=== PATIENT | female | born 1995 | race Caucasian/White ===

== ENCOUNTER 2020-11-10 22:27 | Emergency (ER) | payer OTHER ==
[~2020-11-10] VITALS: Ht 165.1 cm; Wt 61.2 kg
--- NOTE | 2020-11-10 22:41 | NUR ---
MSE COMPLETED, PT D/C'D HOME ACI/RX X1 GIVEN, PT AMBULATED W/O DIFF/TOOK ALL BELONGINGS.
[2020-11-10 22:42] VITALS: BP 102/97
== END 2020-11-10 22:43 | disposition home or self-care (01) ==
LOC: ER 22:27
DX: Z76.0 Encounter for issue of repeat prescription (principal); R10.2 Pelvic and perineal pain
CPT/HCPCS: A4663

== ENCOUNTER 2021-07-29 01:51 | Emergency (ER) | payer OTHER ==
[~2021-07-29] VITALS: Ht 167.6 cm; Wt 63.5 kg
--- NOTE | 2021-07-29 02:06 | NUR ---
ERMD into eval patient.
[2021-07-29] MEDS ORDERED: LIDOCAINE HCL 1% 20 ML VIAL TP ONE (02:15)
[2021-07-29] MEDS ORDERED: SULF1TAB48 PO (02:28)
[2021-07-29] MEDS ORDERED: DOXY100T2 PO (02:28)
[2021-07-29] MEDS ORDERED: IBUP-1955 PO (02:28)
[2021-07-29 02:29] LABS: *URINE HCG, QUAL NEGATIVE (NEGATIVE)
[2021-07-29] MEDS ORDERED: SULFAMETH/TRIMETH 800/160 MG TABLET PO ONE (02:30)
[2021-07-29] MEDS ORDERED: DOXYCYCLINE HYCLATE 100 MG TABLET PO ONE (02:30)
[2021-07-29] MEDS ORDERED: BACITRACIN ZINC OINT 15 GM TUBE TOP ONE (02:30)
[2021-07-29] MEDS ORDERED: IBUPROFEN 600 MG TABLET PO ONE (02:30)
[2021-07-29] MEDS ORDERED: BACITRACIN ZINC OINT 15 GM TUBE ONE (02:33)
--- NOTE | 2021-07-29 02:35 | NUR ---
d=Dressing applied on I/D site as ordered by ERMD.
[2021-07-29] MEDS ORDERED: IBUPROFEN 600 MG TABLET ONE (02:41)
[2021-07-29] MEDS ORDERED: DOXYCYCLINE HYCLATE 100 MG TABLET ONE (02:41)
[2021-07-29] MEDS ORDERED: SULFAMETH/TRIMETH 800/160 MG TABLET ONE (02:41)
--- NOTE | 2021-07-29 02:41 | NUR ---
Patient discharged to home in stable condition. Written and verbal after care instructions given. Patient verbalizes understanding of instructions. Stressed follow up or return to ER for worsening s/s.
[2021-07-29 02:42] VITALS: BP 135/88
== END 2021-07-29 02:42 | disposition home or self-care (01) ==
LOC: ER 01:55
DX: L02.612 Cutaneous abscess of left foot (principal); S90.862A Insect bite (nonvenomous), left foot, initial encounter; L03.116 Cellulitis of left lower limb; W57.XXXA Bitten or stung by nonvenomous insect and other nonvenomous arthropods, initial encounter; Y92.89 Other specified places as the place of occurrence of the external cause; F17.210 Nicotine dependence, cigarettes, uncomplicated; Z82.49 Family history of ischemic heart disease and other diseases of the circulatory system
CPT/HCPCS: 10060; 84703; 99284; 99406; J3490; A4217; A4663

== ENCOUNTER 2021-10-14 08:22 | Emergency (ER) | payer OTHER ==
[~2021-10-14] VITALS: Ht 170.2 cm; Wt 61.2 kg
[~2021-10-14 08:22] MED LIST: DOXY100T2 PO; IBUP-1955 PO; SULF1TAB48 PO
[2021-10-14] MEDS ORDERED: SULF1TAB48 PO (08:33)
--- NOTE | 2021-10-14 08:37 | NUR ---
Gave pt RX and d/c instructions, pt verbalized understanding.
[2021-10-15] MEDS ORDERED: SULF1TAB48 PO (13:23)
[2021-10-15] MEDS ORDERED: CLIN300C12 PO (13:23)
== END 2021-10-14 08:41 | disposition home or self-care (01) ==
LOC: ER 08:22
DX: L73.9 Follicular disorder, unspecified (principal); B95.8 Unspecified staphylococcus as the cause of diseases classified elsewhere; Z82.49 Family history of ischemic heart disease and other diseases of the circulatory system; F17.200 Nicotine dependence, unspecified, uncomplicated
CPT/HCPCS: A4663

== ENCOUNTER 2021-10-15 13:02 | Emergency (ER) | payer OTHER ==
[~2021-10-15] VITALS: Ht 170.2 cm; Wt 61.2 kg
[2021-10-15] MEDS ORDERED: CLIN300C12 PO (13:23)
[2021-10-15] MEDS ORDERED: SULF1TAB48 PO (13:23)
[2021-10-15] MEDS ORDERED: CLINDAMYCIN PHOSPHATE 600 MG/4 ML VIAL IM ONE (13:30)
[2021-10-15] MEDS ORDERED: CLINDAMYCIN PHOSPHATE 600 MG/4 ML VIAL ONE (13:31)
--- NOTE | 2021-10-15 13:31 | NUR ---
Patient does not wish to proceed with medical care recommended by Dr. Polanco. Patient given information related to possible complications, up to and including , which could occur as a result of leaving the hospital at this time. Patient verbalizes understanding of risks involved due to leaving against medical advice. Patient has signed AMA form. Written and verbal after care instructions given. Patient verbalizes understanding of instructions. Stressed follow up or return to ER for worsening s/s.
== END 2021-10-15 13:42 | disposition left against medical advice (07) ==
LOC: ER 13:02
DX: L02.01 Cutaneous abscess of face (principal); L03.213 Periorbital cellulitis; L02.416 Cutaneous abscess of left lower limb; F10.10 Alcohol abuse, uncomplicated; Z53.29 Procedure and treatment not carried out because of patient's decision for other reasons; F17.210 Nicotine dependence, cigarettes, uncomplicated; Z82.49 Family history of ischemic heart disease and other diseases of the circulatory system
CPT/HCPCS: 96372; 99283; J3490; A4663

== ENCOUNTER 2021-10-15 22:55 | Emergency (ER) | payer OTHER ==
[~2021-10-15] VITALS: Ht 167.6 cm; Wt 59.0 kg
[~2021-10-15 22:55] MED LIST changes: +CLIN300C12 PO
--- NOTE | 2021-10-15 23:22 | NUR ---
pt in er for c/o right eye lid pain. pt was seen two days ago in this er for same complaint. pt a/o x4 able to ambulate without assist steady gait. pt denies c/p sob, pt denies other medical complaints.
[2021-10-15] MEDS ORDERED: LIDOCAINE 1%-EPI 1:100,000 20 ML VIAL IJ ONE (23:45)
[2021-10-16] MEDS ORDERED: AZITHROMYCIN 250 MG TABLET PO ONE (00:15)
[2021-10-16] MEDS ORDERED: CEFTRIAXONE 1 G VIAL IM ONE (00:15)
[2021-10-16 00:32] LABS: *URINE HCG, QUAL NEGATIVE (NEGATIVE)
[2021-10-16] MEDS ORDERED: AZITHROMYCIN 250 MG TABLET ONE (00:32)
[2021-10-16] MEDS ORDERED: CEFTRIAXONE 1 G VIAL ONE (00:33)
--- NOTE | 2021-10-16 00:51 | NUR ---
no adverse reaction noted from rocephin given im to right deltoid.
--- NOTE | 2021-10-16 01:14 | NUR ---
Patient discharged to home in stable condition. Written and verbal after care instructions given. Patient verbalizes understanding of instructions. Stressed follow up or return to ER for worsening s/s. Steady gait, denies any pain/discomfort upon discharge. Picked up by significant other.
[2021-10-16 01:18] VITALS: BP 116/80
[2021-10-18 19:06] LABS: *GC NAA Negative (Negative)
[2021-10-20 16:06] LABS: *TRIC.VAG. NAA Negative (Negative)
== END 2021-10-16 01:16 | disposition home or self-care (01) ==
LOC: ER 22:58
DX: L02.01 Cutaneous abscess of face (principal); L02.416 Cutaneous abscess of left lower limb; L03.213 Periorbital cellulitis; L03.116 Cellulitis of left lower limb; F17.210 Nicotine dependence, cigarettes, uncomplicated; Z82.49 Family history of ischemic heart disease and other diseases of the circulatory system; N89.8 Other specified noninflammatory disorders of vagina
CPT/HCPCS: 10061; 84703; 87491; 96372; 99284; J0696; J3490; A4663; Q0144

== ENCOUNTER 2022-04-09 04:04 | Emergency (ER) | payer SELFPAY ==
--- NOTE | 2022-04-09 04:05 | NUR ---
Patient called to be triaged but was not present in the waiting room.
--- NOTE | 2022-04-09 04:15 | NUR ---
Patient called to be triaged but was not present in the waiting room.
--- NOTE | 2022-04-09 04:30 | NUR ---
Patient called to be triaged but was not present in the waiting room. PATIENT WAS NOT TRIAGED OR SEEN BY ERMD
== END 2022-04-09 04:33 | disposition left against medical advice (07) ==
LOC: ER 04:08
DX: Z53.21 Procedure and treatment not carried out due to patient leaving prior to being seen by health care provider (principal)